=== PATIENT | male | born 2000 | race African-American/Black ===

== ENCOUNTER 2023-12-13 18:14 | Emergency (ER) | payer MEDICAID ==
[~2023-12-13] VITALS: Ht 172.7 cm; Wt 83.9 kg
[2023-12-13 18:15] VITALS: BP_SYST 125; PULSE 68; RESP 19; TEMP 97.8; O2SAT 99
[2023-12-13] MEDS: KETOROLAC TROMETHAMINE 60 MG/2 ML VIAL IM ONE (20:24)
[2023-12-13] MEDS ORDERED: IBUP-1971 PO (20:45)
[2023-12-13 20:54] VITALS: BP_SYST 142; PULSE 51; RESP 18; TEMP 98.8; O2SAT 99
== END 2023-12-13 20:54 | disposition home or self-care (01) ==
LOC: SED 18:14
DX: M26.642 Arthritis of left temporomandibular joint (principal); Z79.899 Other long term (current) drug therapy
CPT/HCPCS: 99283; 70110; 96372; J1885